=== PATIENT | female | born 1940 | race Caucasian/White ===

== ENCOUNTER 2017-09-24 17:54 | Inpatient (IN) ==
[2017-09-24] MEDS ORDERED: *HR* FentaNYL (PF) 100 MCG/2 ML VIAL IVP ONE ×2 (18:07→19:42)
--- NOTE | 2017-09-24 18:08 | Emergency Department Note ---
Disposition Clinical Impression: Hip fracture, Chronic kidney disease Disposition: Admitted As Inpatient Condition: Fair General Adult HPI - General Chief complaint: ED Fall Stated complaint: fall/left hip pain Time Seen by Provider: 09/24/17 17:56 Source: EMS Limitations: physical limitation - History of Present Illness Pain Scale: 10 - Related Data Home Medications Medication Instructions Recorded Confirmed PrednisoLONE Acetate 1% Opth 1 drop LEFT EYE QID 09/24/17 09/24/17 [PredFORTE 1%] Allergies Allergy/AdvReac Type Severity Reaction Status Date / Time sulfamethoxazole AdvReac Vomiting Verified 08/04/17 09:08 [From Bactrim] trimethoprim [From Bactrim] AdvReac Vomiting Verified 08/04/17 09:08 Past Medical History - Past Medical History Medical history: Reports: hyperlipidemia, other Psychiatric history: Reports: no psych history BEAD CUTTER history: Reports: no BEAD CUTTER history - Social History Smoking Status: Never smoker Smokeless Tobacco Status: No Alcohol use: Reports: none Drug use: Reports: none Physical Exam - General Limitations: physical limitation General appearance: alert, in no apparent distress Course Vital Signs Temperature 98.6 F 09/24/17 17:56 Pulse Rate 81 09/24/17 17:56 Respiratory Rate 16 09/24/17 17:56 Blood Pressure 138/80 09/24/17 17:56 O2 Sat by Pulse Oximetry 98 09/24/17 17:56 Temperature 98.3 F 09/25/17 06:25 Pulse Rate 83 09/25/17 06:25 Respiratory Rate 18 09/25/17 06:25 Blood Pressure 123/73 09/25/17 06:25 O2 Sat by Pulse Oximetry 99 09/25/17 06:25 Oxygen Delivery Oxygen Delivery Room Air Medical Decision Making - Lab Data Result diagrams: 09/25/17 00:49 09/25/17 00:49 Lab Results 09/24/17 09/24/17 09/24/17 Range/Units 18:13 18:13 18:13 WBC 2.8 L (4.3-11.1) K/mcL RBC 3.68 L (3.82-4.97) M/mcL Hgb 11.4 L (11.5-15.4) g/dL Hct 34.2 L (35.3-44.9) % MCV 92.9 (83.0-100.0) fL MCH 31.0 (28.0-33.3) pg MCHC 33.3 (31.6-35.5) g/dL RDW 13.7 (11.5-14.5) % Plt Count 154 (140-400) K/mcL MPV 10.6 (9.4-12.4) fL Immature Gran % 0.0 (0-4) % Seg Neutrophils % 45.0 % Lymphocytes % 46.0 % Monocytes % 5.4 % Eosinophils % 2.5 % Basophils % 1.1 % Neutrophils # 1.2 L (1.6-8.9) K/mcL Lymphocytes # 1.3 (0.6-4.6) K/mcL Monocytes # 0.2 (0.0-1.3) K/mcL Eosinophils # 0.1 (0.0-0.6) K/mcL Basophils # 0.0 (0.0-0.2) K/mcL PT (9.4-12.1) Seconds INR Sodium 140 (136-145) mEq/L Potassium 3.8 (3.5-5.1) mEq/L Chloride 107 (98-107) mEq/L Carbon Dioxide 26 (23-29) mEq/L BUN 27 H (8-23) mg/dL Creatinine 1.58 H (0.60-1.20) mg/dL Est GFR ( Amer) 38 L (> 60) Est GFR (Non-Af Amer) 32 L (> 60) BUN/Creatinine Ratio 17 (6-26) Glucose 111 H (70-105) mg/dL Calculated Osmolality 296 (280-300) Calcium 9.8 (8.6-10.3) mg/dL Blood Type A POSITIVE Antibody Screen NEGATIVE 09/24/17 Range/Units 18:13 WBC (4.3-11.1) K/mcL RBC (3.82-4.97) M/mcL Hgb (11.5-15.4) g/dL Hct (35.3-44.9) % MCV (83.0-100.0) fL MCH (28.0-33.3) pg MCHC (31.6-35.5) g/dL RDW (11.5-14.5) % Plt Count (140-400) K/mcL MPV (9.4-12.4) fL Immature Gran % (0-4) % Seg Neutrophils % % Lymphocytes % % Monocytes % % Eosinophils % % Basophils % % Neutrophils # (1.6-8.9) K/mcL Lymphocytes # (0.6-4.6) K/mcL Monocytes # (0.0-1.3) K/mcL Eosinophils # (0.0-0.6) K/mcL Basophils # (0.0-0.2) K/mcL PT 11.5 (9.4-12.1) Seconds INR 1.0 Sodium (136-145) mEq/L Potassium (3.5-5.1) mEq/L Chloride (98-107) mEq/L Carbon Dioxide (23-29) mEq/L BUN (8-23) mg/dL Creatinine (0.60-1.20) mg/dL Est GFR ( Amer) (> 60) Est GFR (Non-Af Amer) (> 60) BUN/Creatinine Ratio (6-26) Glucose (70-105) mg/dL Calculated Osmolality (280-300) Calcium (8.6-10.3) mg/dL Blood Type Antibody Screen Attestation Statement - Attestation Attestation: I examined this patient and my medical decision-making was reviewed with the DEALERSHIP GENERAL MANAGER/PA/Advanced Practice Nurse/Resident Physician. I agree with the documented findings, disposition and treatment plan as described except to the extent set forth below. Presents with right hip pain after tripping and falling on the sidewalk when she tripped over some weeds and this was 1 hour ago at 5 PM tonight and does have right-sided pain which is severe and worse with range of motion. She did not hit her head. She denies any pain in the head, neck, chest, abdomen or back. On exam does have pain with palpation of the right hip but no open fracture or evidence of abrasion or breaks in the skin. The right leg does have minimal shortening compared to the left at the dorsal pedal pulse is 2+, neurovascular intact. X-ray pending. 180
--- NOTE | 2017-09-24 18:15 | Emergency Department Note ---
Disposition Clinical Impression: Hip fracture Qualifiers: Encounter type: initial encounter Fracture type: closed Laterality: right Qualified Code(s): S72.001A - Fracture of unspecified part of neck of right femur, initial encounter for closed fracture Chronic kidney disease Qualifiers: Chronic kidney disease stage: unspecified stage Qualified Code(s): N18.9 - Chronic kidney disease, unspecified Disposition: Admitted As Inpatient Condition: Fair Referrals: Alicia Pereira CNP [Primary Care Provider] - Nick Cortes CNP [Family Provider] - Forms: ED Satisfaction Letter Time of Disposition: 19:00 Fall HPI - General Chief Complaint: ED Fall Stated Complaint: fall/left hip pain Time Seen by Provider: 09/24/17 17:56 Source: patient, EMS Mode of arrival: ambulatory Limitations: no limitations Nursing Notes Reviewed: Yes Vital Signs Reviewed: Yes - History of Present Illness HPI Narrative: 77-year-old female with a history of hypertension presents for evaluation after mechanical fall. Patient states she was walking on the sidewalk [place] hour prior to arrival. Patient states she fell landing on her right hip complaining of severe right hip pain. His pain is localized at the right hip. Denies any head neck or back pain. Denies any knee pain. Patient has not been ambulatory following that fall. EMS confirm the history. Patient denies any abdominal pain. No chest pain or short of breath. - Related Data Home Medications Medication Instructions Recorded Confirmed PrednisoLONE Acetate 1% Opth 1 drop LEFT EYE QID 09/24/17 09/24/17 [PredFORTE 1%] Allergies Allergy/AdvReac Type Severity Reaction Status Date / Time sulfamethoxazole AdvReac Vomiting Verified 08/04/17 09:08 [From Bactrim] trimethoprim [From Bactrim] AdvReac Vomiting Verified 08/04/17 09:08 All systems ED: reviewed and negative except as stated. Constitutional: Denies: fever Cardiovascular: Denies: chest pain Respiratory: Denies: cough, dyspnea Gastrointestinal: Denies: abdominal pain, nausea, vomiting Fall PMH - Past Medical History Medical history: Reports: hyperlipidemia, other Psychiatric history: Reports: no psych history PROFESSOR OF COMMUNICATION history: Reports: no PROFESSOR OF COMMUNICATION history - Social History Smoking Status: Never smoker Alcohol use: Reports: none Drug use: Reports: none Physical Exam - General Limitations: physical limitation General appearance: alert, in no apparent distress - Head Head exam: atraumatic, normocephalic, normal inspection - Eye Eye exam: Present: normal appearance, PERRL, EOMI - ENT ENT exam: normal exam, mucous membranes moist - Neck Neck exam: Present: normal inspection - Chest Chest inspection: Present: normal inspection, symmetric chest wall rise - Respiratory Respiratory exam: Present: normal lung sounds bilaterally. Absent: respiratory distress - Cardiovascular Cardiovascular exam: Present: regular rate, normal rhythm. Absent: systolic murmur - Abdominal Exam Abdominal exam: Present: soft, Non-Tender - Expanded Lower Extremity Exam Hip/Pelvis exam: Present: tenderness (Right hip), deformity, external rotation, shortening Upper leg exam: Present: normal inspection. Absent: swelling, abrasion Knee exam: Present: normal inspection. Absent: tenderness Lower leg exam: Present: normal inspection. Absent: tenderness Ankle exam: Present: normal inspection. Absent: tenderness Foot/toe exam: Present: normal inspection. Absent: tenderness Neurovascular/Tendon exam: Present: normal capillary refill. Absent: pulse deficit, motor deficit, sensory deficit - Back Exam Back exam: Present: normal inspection - Neurological Exam Neurological exam: Present: alert - Skin Skin exam: Present: warm, dry, intact, normal color Course Course Narrative: Patient's resting comfortably. Patient does have clinical symptoms of right hip fracture. Patient is neurovascularly intact. Patient will get imaging of the right hip with anticipated admission. - Reevaluation(s) Reevaluation #1: Patient is updated on plan of care. Patient is aware of her hip fracture. Patient will be admitted. Time: 18:59 - Consultations Consultation #1: Discussed the case with orthopeadics who is aware of the consult. Time: 18:59 Vital Signs Temperature 98.6 F 09/24/17 17:56 Pulse Rate 81 09/24/17 17:56 Respiratory Rate 16 09/24/17 17:56 Blood Pressure 138/80 09/24/17 17:56 O2 Sat by Pulse Oximetry 98 09/24/17 17:56 Temperature 98.6 F 09/24/17 17:56 Pulse Rate 68 09/24/17 18:41 Respiratory Rate 16 09/24/17 18:41 Blood Pressure 129/85 09/24/17 18:41 O2 Sat by Pulse Oximetry 97 09/24/17 18:41 Oxygen Delivery Oxygen Delivery Room Air Fall - [facility] Narrative Medical decision making narrative: Patient presents after mechanical fall. Patient history and physical exam is most consistent with mechanical and no syncope. Patient suffered a right hip fracture mildly displaced. Patient is neurovascularly intact. Patient case was discussed with orthopedics is aware the consult. Patient ultimately was medically the hospitalist. Patient declined the need for pain medication. Patient was offered appropriate pain medication. Patient also had preoperative labs. Patient was noted to be chronically anemic as well as chronic kidney disease. Patient had a preoperative EKG which showed no acute abnormalities. Patient's plan of care discussed at bedside. All questions are answered. Patient will be admitted in stable condition. Patient was noted to be leukopenic and has been leukopenic in the past. - Lab Data Lab results reviewed: Yes I reviewed the patient's lab results. Result diagrams: 09/24/17 18:13 09/24/17 18:13 Lab Results 09/24/17 09/24/17 09/24/17 Range/Units 18:13 18:13 18:13 WBC 2.8 L (4.3-11.1) K/mcL RBC 3.68 L (3.82-4.97) M/mcL Hgb 11.4 L (11.5-15.4) g/dL Hct 34.2 L (35.3-44.9) % MCV 92.9 (83.0-100.0) fL MCH 31.0 (28.0-33.3) pg MCHC 33.3 (31.6-35.5) g/dL RDW 13.7 (11.5-14.5) % Plt Count 154 (140-400) K/mcL MPV 10.6 (9.4-12.4) fL Immature Gran % 0.0 (0-4) % Seg Neutrophils % 45.0 % Lymphocytes % 46.0 % Monocytes % 5.4 % Eosinophils % 2.5 % Basophils % 1.1 % Neutrophils # 1.2 L (1.6-8.9) K/mcL Lymphocytes # 1.3 (0.6-4.6) K/mcL Monocytes # 0.2 (0.0-1.3) K/mcL Eosinophils # 0.1 (0.0-0.6) K/mcL Basophils # 0.0 (0.0-0.2) K/mcL Sodium 140 (136-145) mEq/L Potassium 3.8 (3.5-5.1) mEq/L Chloride 107 (98-107) mEq/L Carbon Dioxide 26 (23-29) mEq/L BUN 27 H (8-23) mg/dL Creatinine 1.58 H (0.60-1.20) mg/dL Est GFR ( Amer) 38 L (> 60) Est GFR (Non-Af Amer) 32 L (> 60) BUN/Creatinine Ratio 17 (6-26) Glucose 111 H (70-105) mg/dL Calculated Osmolality 296 (280-300) Calcium 9.8 (8.6-10.3) mg/dL Blood Type A POSITIVE Antibody Screen NEGATIVE - Radiology Data Radiology results reviewed: Yes I reviewed the patient's radiology results. Hip X-Ray 09/24/17 18:06 IMPRESSION: Right femoral neck fracture. D/ / Steve Del Angel MD / Steve Del Angel MD Interpreting Provider: Steve Del Angel MD - EKG Data EKG attestation: Yes I reviewed and interpreted this EKG. EKG shows normal: sinus rhythm Rate: normal Rhythm: NSR [place]/QRS: normal Interpretation: no acute changes, normal EKG S.B.AKinza - Ira Situation: Demographics Background: Presenting Complaint Assessment: Vital Signs, Patient/Family Expectation Recommendation: Barrier(s) to disposition, Recommendation based on pending studies, treatments, or consults S.B.AKinza Report Given to: Dr. Juaquin Roth Repor Time: 19:05
[2017-09-24 18:22] LABS: Basophils % 1.1 %; Eosinophils # 0.1 K/mcL (0.0-0.6); Eosinophils % 2.5 %; Hematocrit 34.2 % (35.3-44.9); Hemoglobin 11.4 g/dL (11.5-15.4); Lymphocytes # 1.3 K/mcL (0.6-4.6); Mean Corpuscular HGB Conc 33.3 g/dL (31.6-35.5); Mean Corpuscular Volume 92.9 fL (83.0-100.0); Mean Platelet Volume 10.6 fL (9.4-12.4); Monocytes # 0.2 K/mcL (0.0-1.3); Monocytes % 5.4 %; Neutrophils # 1.2 K/mcL (1.6-8.9); Platelet Count 154 K/mcL (140-400); Red Blood Count 3.68 M/mcL (3.82-4.97); Red Cell Distribution Width 13.7 % (11.5-14.5)
[2017-09-24 18:41] LABS: Calcium 9.8 mg/dL (8.6-10.3); Potassium 3.8 mEq/L (3.5-5.1)
[2017-09-24] MEDS ORDERED: Naloxone 0.4 MG/ML INJ IVP PRN (19:14)
[2017-09-24] MEDS ORDERED: *HR* HYDROcodone/Acet 5/325 mg TABLET PO PRN (19:14)
[2017-09-24] MEDS ORDERED: Acetaminophen 325 MG TABLET PO PRN (19:14)
--- NOTE | 2017-09-24 19:18 | Internal Med History&Physical ---
Date of Encounter: 09/24/17 Time of Encounter: 19:16 Internal Medicine - H&P: HPI Chief complaint: Fall Admitted From: Emergency Dept Plans for Post Hospital Care: Home History of present illness: Ms. Guzman is a 77 year old female with a history of chronic kidney disease , polycystic kidney disease, chronic leukopenia who presents after sustaining a mechanical fall and found to have a right femoral neck fracture. The patient denies any loss of consciousness. She states that she was at the [employer] and she stepped outside to the sidewalk and did not realize that it was uneven. She put her foot down on the uneven part and ended up falling on her right side and experienced significant pain. She was sent to the ED to get evaluated and found to have the above fracture. Denies any headache, blurry vision, nausea, vomiting, chest pain, shortness of breath, abdominal pain, diarrhea, constipation, urinary symptoms, or neurological symptoms. Orthopedics were consulted in the ED and will see the patient tomorrow for possible surgical intervention. Past Med Surg Social Fam HX - Past Medical History Medical history: hyperlipidemia, other Additional medical history: polycystic kidney disease Psychiatric history: no psych history - Past Surgical History Additional surgical history: breast biopsy - Social History Smoking Status: Never smoker Smokeless Tobacco Status: No Alcohol use: none Drug use: none Internal Medicine - H&P: Meds PrednisoLONE Acetate 1% Opth [PredFORTE 1%] 1 drop LEFT EYE QID 09/24/17 [ History] 3 Allergy/AdvReac Type Severity Reaction Status Date / Time sulfamethoxazole AdvReac Vomiting Verified 08/04/17 09:08 [From Bactrim] trimethoprim [From Bactrim] AdvReac Vomiting Verified 08/04/17 09:08 All Systems PM: A 10-system review of systems was performed and is negative for pertinent findings except as documented above in the HPI. Review of systems: All systems reviewed are negative except for as mentioned above - Constitutional Vitals: Temp Pulse Resp BP Pulse Ox 98.6 F 68 16 129/85 97 09/24/17 17:56 09/24/17 18:41 09/24/17 18:41 09/24/17 18:41 09/24/17 18:41 Exam: GEN: NAD HEENT: AT, NC, No cyanosis, oral mucosa is moist, No JVD Lymphatics: No lymphadenoapthy Eyes: Extrocular muscles intact, anicteric CVS:RRR. S1, S2, No m/r/g RESP: CTAB ABD: Soft, NT, ND, +BS EXT: No edema, No rashes, 2+ DP, right lower extremity externally rotated. NEURO: Nonfocal, CN II-XII intact, No focal motor or sensory deficits Psych: Cooperative, Not anxious or depressed Internal Med - H&P Results - Labs CBC & Chem 7: 09/24/17 18:13 09/24/17 18:13 Labs: Short CBC 09/24/17 Range/Units 18:13 WBC 2.8 L (4.3-11.1) K/mcL Hgb 11.4 L (11.5-15.4) g/dL Hct 34.2 L (35.3-44.9) % Plt Count 154 (140-400) K/mcL Neutrophils # 1.2 L (1.6-8.9) K/mcL BMP 09/24/17 18:13 Sodium 140 Potassium 3.8 Chloride 107 Carbon Dioxide 26 BUN 27 H Creatinine 1.58 H Glucose 111 H Calcium 9.8 - Impressions ITS Impressions Hip X-Ray 09/24/17 18:06 IMPRESSION: Right femoral neck fracture. D/ / Steve Del Angel MD / Steve Del Angel MD Interpreting Provider: Steve Del Angel MD - Assessment and plan (1) Femoral neck fracture Current Visit: Yes Status: Acute Assessment and plan: Admit to hospitalist. Pain control. Consult orthopedics. Nothing by mouth after midnight. EKG for preoperative purposes. We will add PT/INR to labs from the ED. Patient should be a moderate risk for intermediate risk procedure/ surgery with no need for further cardiac workup. Qualifiers: Encounter type: initial encounter Fracture type: closed Laterality: right Qualified Code(s): S72.001A - Fracture of unspecified part of neck of right femur, initial encounter for closed fracture (2) Chronic kidney disease Current Visit: Yes Status: Acute Assessment and plan: Stable around baseline. Qualifiers: Chronic kidney disease stage: stage 3 (moderate) Qualified Code(s): N18.3 - Chronic kidney disease, stage 3 (moderate) (3) Leukopenia Current Visit: No Status: Acute Assessment and plan: Seems to be chronic. Patient follows up with hematology and no specific etiology has been identified. We will refer to hematology in the outpatient setting Qualifiers: Leukopenia type: unspecified Qualified Code(s): D72.819 - Decreased white blood cell count, unspecified (4) DVT prophylaxis Current Visit: Yes Status: Acute Assessment and plan: Heparin subcutaneous - Time Spent With Patient Total time spent is greater than 50% in coordination of care (as documented) at patient's floor/unit and/or counseling patient:
[2017-09-24 19:29] LABS: Prothrombin Time 11.5 Seconds (9.4-12.1)
[2017-09-24] MEDS: *HR* Heparin 5,000 UNIT/ML VIAL SQ SCH (21:02)
[2017-09-24] MEDS ORDERED: *HR* OxyCODONE Immed Rel 5 MG TABLET PO PRN (23:30)
[2017-09-25 01:22] LABS: Basophils % 0.5 %; Eosinophils # 0.1 K/mcL (0.0-0.6); Eosinophils % 1.6 %; Hematocrit 32.4 % (35.3-44.9); Immature Granulocytes % 0.3 % (0-4); Lymphocytes # 1.3 K/mcL (0.6-4.6); Lymphocytes % 34.8 %; Mean Corpuscular Hemoglobin 31.3 pg (28.0-33.3); Mean Platelet Volume 11.7 fL (9.4-12.4); Monocytes # 0.3 K/mcL (0.0-1.3); Monocytes % 7.1 %; Neutrophils # 2.1 K/mcL (1.6-8.9); Platelet Count 129 K/mcL (140-400); Red Blood Count 3.52 M/mcL (3.82-4.97); Red Cell Distribution Width 13.6 % (11.5-14.5); Segmented Neutrophils % 55.7 %
[2017-09-25 01:38] LABS: Calcium 9.4 mg/dL (8.6-10.3); Potassium 3.5 mEq/L (3.5-5.1)
[2017-09-25] MEDS: *HR* Heparin 5,000 UNIT/ML VIAL SQ SCH ×3 (06:04→21:35)
--- NOTE | 2017-09-25 08:40 | Orthopedic Consult Note ---
Date of Encounter: 09/25/17 Time of Encounter: 08:39 Assessment and Plan (1) Hip fracture Current Visit: Yes Status: Aiyana Daigle has a displaced right femoral neck fracture. The recommendation is for surgical treatment to allow for early mobilization and pain control. After discussing the pros and cons of treatment options with the patient, she has elected to proceed with right hip hemiarthroplasty at this time. The risks and benefits of the procedure were fully explained in detail, including but not limited to the risk of infection, neurovascular injury, continued pain or stiffness, failure of surgery, reinjury, or need for additional surgery, DVT, PE , general risks of anesthesia and loss of limb or life. No guarantees were given or implied and all questions were answered. The patient understands all the risks and does wish to proceed with written consent. NPO for surgery. Qualifiers: Encounter type: initial encounter Fracture type: closed Laterality: right Qualified Code(s): S72.001A - Fracture of unspecified part of neck of right femur, initial encounter for closed fracture History of Present Illness HPI: Ms. Guzman is a 77 year old female with a history of chronic kidney disease , polycystic kidney disease, chronic leukopenia who presents after sustaining a mechanical fall on a sidewalk. She had immediate pain and deformity of the right hip following the fall. The patient denies any loss of consciousness, chest pain, SOB or blacking out prior to the fall. No other injuries or neuro complaints. Community ambulator without assistive devices. Past Med Surg Social Fam HX - Past Medical History Medical history: hyperlipidemia, other Additional medical history: polycystic kidney disease, cataracts, ckd, leukopenia Psychiatric history: no psych history - Past Surgical History Surgical History: hysterectomy Additional surgical history: breast biopsy, cataract sx with implants - Social History Smoking Status: Never smoker Smokeless Tobacco Status: No Alcohol use: none Drug use: none - Family History Father Name: gordy carlos Living Status: Hx Family Cancer: Yes Medications and Allergies PrednisoLONE Acetate 1% Opth [PredFORTE 1%] 1 drop LEFT EYE QID 09/24/17 [ History] 3 Allergy/AdvReac Type Severity Reaction Status Date / Time sulfamethoxazole AdvReac Vomiting Verified 08/04/17 09:08 [From Bactrim] trimethoprim [From Bactrim] AdvReac Vomiting Verified 08/04/17 09:08 All Systems Reviewed: The remainder of the systems were reviewed and are negative except as noted in HPI t Physical Exam - Constitutional Vitals: Temp Pulse Resp BP Pulse Ox 98.3 F 83 18 123/73 99 09/25/17 06:25 09/25/17 06:25 09/25/17 06:25 09/25/17 06:25 09/25/17 06:25 Exam: Constitutional -Vitals reviewed -The patient is well developed and well nourished. Psychiatric -The patient is alert and oriented x3. Respiratory: -Respiratory effort normal Abdomen: -Soft abdomen -Non tender -Non distended: Left upper extremity: -No deformities. The overlying skin is intact. No obvious signs of acute trauma. -No tenderness to palpation throughout. -No pain with passive motion of the shoulder, elbow, wrist, and fingers within the limits of the bed. -Motor and sensory exam intact over all nerve distributions -Radial pulse is present; Fingers have good capillary refill. Right upper extremity: -No deformities. The overlying skin is intact. No obvious signs of acute trauma. -No tenderness to palpation throughout. -No significant pain with passive motion of the shoulder, elbow, wrist, and fingers within the limits of the bed. -Motor and sensory exam intact over all nerve distributions -Radial pulse is present; Fingers have good capillary refill. Left lower extremity: -No deformities. The overlying skin is intact. No obvious signs of acute trauma. -No tenderness to palpation throughout. -No pain with passive motion of the hip, knee, ankle, and toes within the limits of the bed. -No pain with axial loading of the thigh. -Motor and sensory exam intact over all nerve distributions -Toes have good capillary refill. Right lower extremity: -Right hip short and ER. Passive motion of the hip deferred due to known fracture. -No pain with palpation of knee, tibia, ankle and foot. -Motor and sensory exam intact over all nerve distributions -Toes have good capillary refill. Results - Labs Result Diagrams: 09/25/17 00:49 09/25/17 00:49 Labs: Abnormal lab results WBC 3.7 K/mcL (4.3-11.1) L 09/25/17 00:49 RBC 3.52 M/mcL (3.82-4.97) L 09/25/17 00:49 Hgb 11.0 g/dL (11.5-15.4) L 09/25/17 00:49 Hct 32.4 % (35.3-44.9) L 09/25/17 00:49 Plt Count 129 K/mcL (140-400) L 09/25/17 00:49 Chloride 109 mEq/L (98-107) H 09/25/17 00:49 BUN 24 mg/dL (8-23) H 09/25/17 00:49 Creatinine 1.22 mg/dL (0.60-1.20) H 09/25/17 00:49 Est GFR ( Amer) 52 (> 60) L 09/25/17 00:49 Est GFR (Non-Af Amer) 43 (> 60) L 09/25/17 00:49 Glucose 118 mg/dL (70-105) H 18 00:49 H & H 09/25/17 Range/Units 00:49 Hgb 11.0 L (11.5-15.4) g/dL Hct 32.4 L (35.3-44.9) % All other labs normal. - Diagnostic results Hip x-ray: image reviewed Consult Discharge Plan - Plan Referrals: Alicia Pereira CNP [Primary Care Provider] - Nick Cortes CNP [Family Provider] -
[2017-09-25] MEDS ORDERED: 0.9 % Sodium Chloride 1,000 ML IVC SCH ×2 (09:15→13:29)
[2017-09-25] MEDS ORDERED: PrednisoLONE Acetate 1% Opth 5 ML BOTTLE LEFT EYE SCH (09:15)
--- NOTE | 2017-09-25 09:17 | Anesthesia Evaluation PreOp ---
Date of Encounter: 09/25/17 Time of Encounter: 09:15 - Past History Planned Operation: Right Hip Hemiarthroplasty Cardiac History: Hyperlipidemia Pulmonary History: Denies Any Significant HX COMPENSATION ANALYST History: Denies Any Significant HX Other Medical History: Renal (polycystic kidneys) Anesthesia History: No Prior Anesthetic Complications, Past Anesthesia Alcohol Use: none Drug use: none Medications and Allergies PrednisoLONE Acetate 1% Opth [PredFORTE 1%] 1 drop LEFT EYE QID 09/24/17 [ History] 3 Allergy/AdvReac Type Severity Reaction Status Date / Time sulfamethoxazole AdvReac Vomiting Verified 08/04/17 09:08 [From Bactrim] trimethoprim [From Bactrim] AdvReac Vomiting Verified 08/04/17 09:08 - Meds/Allergy Pre-op Review Medications Reviewed: Yes Allergies Reviewed: Yes Beta Blockers on Current Med List: No Anesthesia Results - Labs 09/25/17 00:49 09/25/17 00:49 Laboratory Tests 09/24/17 18:13 PT 11.5 INR 1.0 - Imaging EKG: report reviewed (09/24/2017 sinus rhythm) Anesthesia Exam Vital Signs/O2 Sat, Most Current Temp Pulse Resp BP Pulse Ox 98.3 F 83 18 123/73 99 09/25/17 06:25 09/25/17 06:25 09/25/17 06:25 09/25/17 06:25 09/25/17 06:25 Height: 5'3.5"/1.66m Weight: 122 lbs/55.7 kg NPO (# of Hours): 8 Pain Scale: 0 Pain Scale Used: Numeric (1 - 10) - HEENT Pupil (Motor): EOMI Mallampati: II Teeth: Normal, Missing Oral Opening: Greater than 3 - COMPENSATION ANALYST LOC: Oriented COMPENSATION ANALYST Motor: Normal RUE, Normal LUE, Normal RLE, Normal LLE, Normal Face COMPENSATION ANALYST Sensory: Normal: RUE, LUE, RLE, LLE, Face - Cardiac Rhythm: Regular Murmur: None - Pulmonary Breath Sounds: bilateral Clear Respiratory Effort: Symmetrical Anesthesia Assess/Plan ASA Score: 2 Modified [place] Scale for Level of Consciousness: Cooperative, oriented, and tranquil Anesthetic Plan: General Monitoring Plan: Standard Monitors Recovery Plan: PACU
[2017-09-25] MEDS ORDERED: Ethanol\\Acetic Acid\\Na Ace\\Ben 1,000 ML IRRIG.SOLN IR ONE (09:26)
[2017-09-25] MEDS ORDERED: Dexamethasone 4 MG/ML VIAL ONE ×2 (09:42→12:28)
[2017-09-25] MEDS ORDERED: Ondansetron 4 MG/2 ML VIAL ONE (09:42)
[2017-09-25] MEDS ORDERED: *HR* Propofol 200 MG/20 ML VIAL IVP ONE (09:42)
[2017-09-25] MEDS ORDERED: *HR* FentaNYL (PF) 100 MCG/2 ML VIAL ONE ×2 (09:42→10:09)
[2017-09-25] MEDS ORDERED: Lidocaine -MPF 2% 2 ML VIAL ONE ×2 (09:42→12:28)
[2017-09-25] MEDS ORDERED: Lidocaine -MPF 4% 5 ML AMPUL ONE (09:44)
[2017-09-25] MEDS ORDERED: EPHEDrine 50 MG/ML VIAL ONE (09:53)
[2017-09-25] MEDS ORDERED: Ondansetron 4 MG/2 ML VIAL IVP ONE (10:10)
[2017-09-25] MEDS ORDERED: Naloxone 0.4 MG/ML INJ IVP PRN ×3 (10:10→13:29)
[2017-09-25] MEDS ORDERED: Albuterol 2.5 MG/3 ML NEBULIZER IH ONE (10:10)
[2017-09-25] MEDS ORDERED: *HR* OxyCODONE Immed Rel 5 MG TABLET PO PRN (10:10)
[2017-09-25] MEDS ORDERED: *HR* Promethazine 25 MG/ML VIAL IVP PRN ×2 (10:10→13:29)
[2017-09-25] MEDS ORDERED: *HR* HYDROmorphone 2 MG TABLET PO PRN (10:10)
[2017-09-25] MEDS ORDERED: *HR* Meperidine 25 MG/ML SYRINGE IVP PRN (10:10)
[2017-09-25] MEDS ORDERED: CeFAZolin Syr 2,000MG/20 ML 2,000 MG/20 ML SYRINGE IVPB ONE (10:14)
[2017-09-25] MEDS ORDERED: 0.9 % Sodium Chloride 500 ML IVC SCH (10:15)
--- NOTE | 2017-09-25 11:44 | Physician Discharge Referral ---
- Diagnosis (1) Hip fracture Status: Acute - Transfer Medications Home Medications: PrednisoLONE Acetate 1% Opth [PredFORTE 1%] 1 drop LEFT EYE QID 09/24/17 [ History] Allergies/Adverse Reactions: 3 Allergy/AdvReac Type Severity Reaction Status Date / Time sulfamethoxazole AdvReac Vomiting Verified 08/04/17 09:08 [From Bactrim] trimethoprim [From Bactrim] AdvReac Vomiting Verified 08/04/17 09:08 - Respiratory Orders Smoking Cessation: Smoking cessation has been advised. For more information, call the [place] Tobacco Quit Line at 3-559-TLHO-NOW. - Rehabiliation Orders Rehab Potential: Fair Rehab Orders: ROM Exercises, Evaluation for Physical Therapy, Evaluation for Occupational Therapy Other: DISCHARGE INSTRUCTIONS Dr. Magdaleno Total Hip Replacement/Hip Hemiarthroplasty Wound Care -Keep wound / incision area clean and dry. -Keep dressing in place -No baths or swimming until otherwise instructed. -After 14 days, you may begin to shower only if no drainage is present. No submerging the wound under standing water until cleared by your physician (no baths, hot tubs, swimming pools, etc). Sponge baths are the best way to perform personal hygiene while at the same time protecting the wound from moisture. -No scrubbing the wound. You may "pad dry" the wound, but do not rub, as this may open up he wound and pre-dispose to wound infection. -Do not apply lotions or creams to incision site, unless instructed otherwise. -Observe for redness, swelling, or drainage. Please call the clinic immediately if you have fevers, chills with warmth/redness surrounding wound site or if you notice pus drainage from the wound site Activity -No heavy lifting objects greater than 10 pounds. -No driving while on narcotic pain medication. -You may be weight-bear as tolerated on both of your lower extremities. -Use crutches or a walker for ambulation. -Posterior hip precautions for 6 weeks: No bending the hip past 90 degrees. Do not allow the leg to cross the midline of your body (adduction). No twisting motions. Ask your physical therapist to review these precautions with you. Reducing the Risk of Blood Clots -You will need to complete a total 4 week course of enteric coated aspirin 325 mg twice daily. -Wear knee high compression hose 23 hours per day. Discharge Pain Medications -You will be given a prescription for pain medication. Wean off as tolerated. Do not wait to take the pain medication until the pain is severe, as it will be difficult to "catch up" once this occurs. The pain medication usually reaches its full effect ~1 hour after ingesting. -Your prescribed pain medication may contain Tylenol. You must be careful not to exceed 4,000 mg (4 g) of Tylenol (or generic equivalent), from all sources, within a single 24-hour period. -Some common side effects of the narcotic pain medications (Percocet, Oxycodone , Vicodin, etc) include nausea and itching. Benadryl is a great over the counter medication that helps calm your stomach, decreases your anxiety levels, and minimizes the itching. You can easily purchase this at your local pharmacy as an [id number] medication. Please abide by the instructions as printed on t-he bottle. If your nausea persists, make sure to take small amounts of crackers or other refrigerator cabinetmaker foods. [-Resume 50,000 units of vitamin D2 daily and 1200 mg of calcium supplementation per day - Diet Orders Regular CERTIFICATION: I certify that the transfer of the above named patient to an Extended Care Facility is necessary for the continuing treatment of the diagnosis listed. The above information is true and accurate reflection of patient's current condition. Confidential - Redisclosure prohibited without a patient's written consent.
[2017-09-25] MEDS ORDERED: *HR* HYDROmorphone (PF) 1 MG/ML SYRINGE ONE (12:04)
--- NOTE | 2017-09-25 12:07 | Orthopedic Operative Note ---
Date of procedure: 09/25/17 Implants: Procedure: Right hip hemiarthroplasty Preoperative Diagnosis: Right displaced femoral neck fracture Postoperative Diagnosis: Same Surgeon: Murphy Magdaleno MD Car Body Inspector: None Anesthesia: General EBL: 150 cc Complications: None Components used: Biomet Echo lateralized femoral stem, size 11, Endo II 49 mm head, +3 neck INDICATIONS: This is a 77 yo F who had a fall and sustained a right displaced femoral neck fracture. After discussing the procedure at length, and based on the patient's age and activity level, the patient elected for operative management with a right hip hemiarthroplasty. The risks and benefits of the procedure were fully explained. Those risks include but are not limited to, infection, neurovascular injury, continued pain, stiffness, further injury, need for further surgery, DVT, PE, loss of limb, and loss of life. The patient understood all of these risks and wished to proceed. Informed consent was obtained. No guarantees were stated or implied. OPERATIVE REPORT: The patient was identified in the holding area. The right lower extremity was marked, the patient was taken to the operating room and general anesthetic was administered on the hospital bed. The patients head, neck and airway were protected by anesthesia through the case. The patient was then transferred to the operating table and placed in the lateral position on a peg board. All bony prominences were well padded. The right lower extremity was then prepped and draped in the normal manner. Preoperative antibiotics were given prior to incision. A surgical time out protocol was then performed. A posterior approach was made. Incision was made just posterior to the greater trochanter. Sharp dissection was carried through subcutaneous tissue down to the fascia, coagulating any skin bleeders. Fascia nikhil and gluteus faizan fascia were then incised. Faizan fibers were digitally dissected and a Charnley retractor was placed. The hip was extended and internally rotated. A Cobra retractor was then placed over the ilium to retract the abductors anteriorly. Electrocautery was then used to release the piriformis and short external rotators and capsule from the posterior aspect of the hip joint and a full-thickness flap was created. This was tagged for later repair. The release was carried down distally to the level of the lesser trochanter. At this point the hip was dislocated and the femoral neck fracture was exposed. A saw was used to freshen up the femoral neck cut approximately 1 fingerbreadth above the lesser trochanter. The femoral head was removed with a corkscrew. The fractured neck fragments were removed with a ronguer. We then exposed the femur using a femoral elevator, and sequentially remained and broached the femur to appropriate size in accordance with the Biomet system. We seated a size 11 mm broach and did initial trial reductions with -3 neck. The extremity was short and so the hip was dislocated and the -3 neck was exchanged for a +3 neck and the hip was reduced. We had good soft tissue tensioning and stable range of motion, with good reproduction of leg lengths. The trials were removed and the femoral stem was press fit in place. Trial reductions were repeated with the +3 neck. Satisfied with the hip kinematics, we cleaned and dried the trunion and the final femoral head was impacted and the hip was reduced. We then did our final check of range of motion, stability and leg lengths. We then thoroughly irrigated the wound and closed the hip capsule with #1 ethibond. The piriformis tendon and external rotators were repaired through bone tunnels. Fascia nikhil was closed with #1 ethibond and subcutaneous tissues with 2-0 stratafix. Skin was closed with 3-0 stratafix. We then placed sterile dressings the patient was awoken by anesthesia and transferred to PACU in stable condition. Patient tolerated the procedure well. Postop plan: The patient will be transferred back to the floor and will be weight-bearing as tolerated postop. Was there an financial services assistant present: No Estimated blood loss (cc): 150
[2017-09-25] MEDS ORDERED: *HR* Metoprolol 5 MG/5 ML VIAL IVP ONE ×2 (12:51→12:59)
[2017-09-25] MEDS ORDERED: *HR* HYDROcodone/Acet 5/325 mg TABLET PO PRN (13:29)
[2017-09-25] MEDS: PrednisoLONE Acetate 1% Opth 5 ML BOTTLE LEFT EYE SCH ×2 (15:40→21:35)
--- NOTE | 2017-09-25 15:49 | Electrocardiograph Report ---
[address] [address] Test Date: 2017-09-24 Pat Name: Oxana Guzman Department: 104 Room: [facility] Gender: F Dcs Engineer: : [id number] Requested By: Woody Gonzalez Order Number: [id number] Reading MD: Fuad Dupree Measurements Intervals [place] Rate: 67 P: 53 [place]: 196 QRS: 50 QRSD: 86 T: 41 QT: 354 QTc: 369 Interpretive Statements SINUS RHYTHM Electronically Signed On 09-25-2017 15:47:16 EDT by Fuad Dupree
--- NOTE | 2017-09-25 17:07 | Internal Med Progress Note ---
Date of Encounter: 09/25/17 Time of Encounter: 17:06 - Assessment and plan (1) Femoral neck fracture Current Visit: Yes Status: Acute Assessment and plan: POD #0 s/p right hip hemiarthoplasty for right displaced femoral neck fracture. Pain control. Orthopedics consulted; appreciate input. Restarted SQ heparin for DVT prophylaxis. Qualifiers: Encounter type: initial encounter Fracture type: closed Laterality: right Qualified Code(s): S72.001A - Fracture of unspecified part of neck of right femur, initial encounter for closed fracture (2) Leukopenia Current Visit: Yes Status: Chronic Assessment and plan: Slightly improved. Seems to be chronic. Patient follows up with hematology and no specific etiology has been identified. We will refer to hematology in the outpatient setting. Recheck CBC in AM. Qualifiers: Leukopenia type: unspecified Qualified Code(s): D72.819 - Decreased white blood cell count, unspecified (3) Chronic kidney disease Current Visit: Yes Status: Chronic Assessment and plan: Stable around baseline. Recheck BMP in AM. Qualifiers: Chronic kidney disease stage: stage 3 (moderate) Qualified Code(s): N18.3 - Chronic kidney disease, stage 3 (moderate) (4) DVT prophylaxis Current Visit: Yes Status: Acute Assessment and plan: Continue SQ heparin. - Time Spent With Patient Total time spent is greater than 50% in coordination of care (as documented) at patient's floor/unit and/or counseling patient: less than 15 minutes - Subjective Interval history: Patient had no acute events overnight. She is POD #0 s/p right hip hemiarthoplasty for right displaced femoral neck fracture. She tolerated surgery well today. She is in no pain at this time. She denies fever, chills, chest pain, SOB, nausea, vomiting, and abdominal pain. She has no complaints at this time. - Constitutional Vitals: Temp Pulse Resp BP Pulse Ox 97.9 F 77 14 93/53 99 09/25/17 16:31 09/25/17 16:31 09/25/17 16:31 09/25/17 15:32 09/25/17 16:31 General appearance: Present: cooperative, A&O X 3, pleasant, no acute distress, answers questions appropriately - Respiratory Respiratory exam: Present: CTAB. Absent: accessory muscle use, rales, rhonchi, wheezes Additional comments: Normal WOB - Cardiovascular Cardiovascular exam: Present: RRR, +S1, +S2. Absent: diastolic murmur, gallop, rubs, systolic murmur Additional comments: No BLE edema - GI/Abdominal GI/Abdominal exam: Present: normal bowel sounds, soft. Absent: distended, hepatomegaly, mass, splenomegaly, tenderness - Psychiatric Psychiatric exam: Present: normal affect, normal mood. Absent: agitated, anxious, depressed - Skin Skin exam: Present: dry, warm. Absent: cyanosis, erythema, rash Internal Medicine: Result - Labs CBC & Chem 7: 09/25/17 00:49 09/25/17 00:49 Labs: Short CBC 09/25/17 Range/Units 00:49 WBC 3.7 L (4.3-11.1) K/mcL Hgb 11.0 L (11.5-15.4) g/dL Hct 32.4 L (35.3-44.9) % Plt Count 129 L (140-400) K/mcL Neutrophils # 2.1 (1.6-8.9) K/mcL BMP 09/25/17 00:49 Sodium 140 Potassium 3.5 Chloride 109 H Carbon Dioxide 23 BUN 24 H Creatinine 1.22 H Glucose 118 H Calcium 9.4 - ABG Interpretation ABG results: PT/INR, D-dimer PT 11.5 Seconds (9.4-12.1) 09/24/17 18:13 - Impressions Impressions Hip X-Ray 09/25/17 11:34 IMPRESSION: Expected postsurgical changes from right hip hemiarthroplasty. D/ / 09/25/2017 13:01:20 Sandy Stewart MD / Diann De Luna Interpreting Provider: Sandy Stewart MD - VTE Documentation of Mechanical Device: Intermittent pneumatic compression device Consult Discharge Plan - Plan Referrals: Alicia Pereira CNP [Primary Care Provider] - Nick Cortes CNP [Family Provider] -
[2017-09-26 01:49] LABS: Hematocrit 26.7 % (35.3-44.9); Lymphocytes # 0.7 K/mcL (0.6-4.6); Lymphocytes % 16.1 %; Mean Corpuscular HGB Conc 33.3 g/dL (31.6-35.5); Mean Corpuscular Hemoglobin 30.5 pg (28.0-33.3); Mean Corpuscular Volume 91.4 fL (83.0-100.0); Mean Platelet Volume 11.8 fL (9.4-12.4); Monocytes # 0.3 K/mcL (0.0-1.3); Monocytes % 6.9 %; Neutrophils # 3.3 K/mcL (1.6-8.9); Platelet Count 131 K/mcL (140-400); Red Blood Count 2.92 M/mcL (3.82-4.97); Red Cell Distribution Width 14.1 % (11.5-14.5)
[2017-09-26 01:50] LABS: Hemoglobin 8.9 g/dL (11.5-15.4)
[2017-09-26 02:34] LABS: BUN/Creatinine Ratio 19 (6-26); Blood Urea Nitrogen 19 mg/dL (8-23); Calcium 8.9 mg/dL (8.6-10.3); Carbon Dioxide 25 mEq/L (23-29); Chloride 107 mEq/L (98-107); Glucose 141 mg/dL (70-105); Osmolality,Calculated 291 (280-300); Potassium 4.4 mEq/L (3.5-5.1); Sodium 138 mEq/L (136-145); eGFR For African Americans > 60 (> 60); eGFR For Non-African Americans 54 (> 60)
[2017-09-26] MEDS: Acetaminophen 325 MG TABLET PO PRN ×2 (05:23→14:18)
[2017-09-26] MEDS: *HR* Heparin 5,000 UNIT/ML VIAL SQ SCH ×3 (05:23→20:22)
[2017-09-26] MEDS: Cholecalciferol (D-3) 1,000 UNIT TABLET PO SCH (08:17)
[2017-09-26] MEDS: PrednisoLONE Acetate 1% Opth 5 ML BOTTLE LEFT EYE SCH ×4 (08:17→20:21)
--- NOTE | 2017-09-26 08:52 | Orthopedics Progress Note ---
Date of Encounter: 09/26/17 Time of Encounter: 08:49 Subjective Interval history: S: The patient is sitting up on the edge of the bed working with therapy as a walk- in. Expected postoperative pain however significant improvement compared to her preoperative level. O: Afebrile on the vital signs are stable The right hip dressing is clean, dry, and intact. I can passively range the right hip with all and mild pain. She can dorsi flex and plantar flex ankle and toes and the foot is sensate and well-perfused Postoperative x-rays from yesterday showed good placement of her right hip hemiarthroplasty. A: Postoperative day 1 after right hip hemiarthroplasty P: Weight bearing as tolerated on the bilateral lower extremities. Posterior hip precautions. Schmitt out today. Currently on heparin for DVT prophylaxis. Social work and discharge planning. Objective Vital signs: Vital Signs Temp Pulse Resp BP Pulse Ox 09/26/17 08:00 96 09/26/17 06:58 99.3 F 65 16 105/64 96 09/26/17 02:50 98.6 F 83 16 100/56 98 09/25/17 23:20 98.8 F 83 16 90/46 98 09/25/17 20:45 96 09/25/17 18:52 98.1 F 90 16 96 09/25/17 16:31 97.9 F 77 14 99 09/25/17 15:32 98.1 F 81 14 93/53 98 09/25/17 14:46 97.7 F 76 14 103/64 97 09/25/17 13:53 98.1 F 85 14 104/63 97 09/25/17 13:21 98.2 F 91 18 120/68 99 09/25/17 13:00 84 12 113/77 98 09/25/17 12:50 98.3 F 94 14 124/76 99 09/25/17 12:40 91 12 122/71 95 09/25/17 12:30 93 10 119/74 99 09/25/17 12:20 93 18 122/71 99 09/25/17 12:10 99 10 123/75 99 09/25/17 12:00 112 14 107/76 93 09/25/17 11:49 101 16 111/72 99 09/25/17 11:39 99.2 F 99 16 124/80 99 Intake and Output 09/25/17 09/26/17 09/26/17 23:59 07:59 15:59 Intake Total 100 / 100 100 / 100 100 / 100 Output Total 300 / 300 Balance -200 / -200 100 / 100 100 / 100 Intake: IV Fluids 100 / 100 100 / 100 Ancef 2,000 MG In 0.9 % Sodium 100 / 100 100 / 100 Chloride 100 ML @ 200 mls/hr IVPB Q8HR KENZIE Rx#:[id number] Oral 100 / 100 Output: Urine 300 / 300 - Labs CBC & BMP: 09/26/17 00:50 09/26/17 00:50 Labs: Abnormal lab results WBC 4.2 K/mcL (4.3-11.1) L 09/26/17 00:50 RBC 2.92 M/mcL (3.82-4.97) L 09/26/17 00:50 Hgb 8.9 g/dL (11.5-15.4) L D 09/26/17 00:50 Hct 26.7 % (35.3-44.9) L 09/26/17 00:50 Plt Count 131 K/mcL (140-400) L 09/26/17 00:50 Est GFR (Non-Af Amer) 54 (> 60) L 09/26/17 00:50 Glucose 141 mg/dL (70-105) H 09/26/17 00:50 - VTE Documentation of Mechanical Device: Intermittent pneumatic compression device Consult Discharge Plan - Plan Referrals: Alicia Pereira CNP [Primary Care Provider] - Nick Cortes CNP [Family Provider] -
--- NOTE | 2017-09-26 09:19 | Internal Med Progress Note ---
Date of Encounter: 09/26/17 Time of Encounter: 09:17 - Assessment and plan (1) Femoral neck fracture Current Visit: Yes Status: Acute Qualifiers: Encounter type: initial encounter Fracture type: closed Laterality: right Qualified Code(s): S72.001A - Fracture of unspecified part of neck of right femur, initial encounter for closed fracture (2) Leukopenia Current Visit: Yes Status: Chronic Qualifiers: Leukopenia type: unspecified Qualified Code(s): D72.819 - Decreased white blood cell count, unspecified (3) Chronic kidney disease Current Visit: Yes Status: Chronic Qualifiers: Chronic kidney disease stage: stage 3 (moderate) Qualified Code(s): N18.3 - Chronic kidney disease, stage 3 (moderate) (4) DVT prophylaxis Current Visit: Yes Status: Acute - Time Spent With Patient Total time spent is greater than 50% in coordination of care (as documented) at patient's floor/unit and/or counseling patient: - Subjective Interval history: Patient had no acute events overnight. She is POD #1 s/p right hip hemiarthoplasty for right displaced femoral neck fracture. She is ambulating from chair to bed when I saw her. She is in no pain at this time. She denies fever, chills, chest pain, SOB, nausea, vomiting, and abdominal pain. She has no complaints at this time. - Constitutional Vitals: Temp Pulse Resp BP Pulse Ox 99.3 F 65 16 105/64 96 09/26/17 06:58 09/26/17 06:58 09/26/17 06:58 09/26/17 06:58 09/26/17 08:00 General appearance: Present: cooperative, A&O X 3, pleasant, no acute distress, answers questions appropriately - Respiratory Respiratory exam: Present: CTAB. Absent: accessory muscle use, rales, rhonchi, wheezes Additional comments: Normal WOB - Cardiovascular Cardiovascular exam: Present: RRR, +S1, +S2. Absent: diastolic murmur, gallop, rubs, systolic murmur Internal Medicine: Result - Labs CBC & Chem 7: 09/26/17 00:50 09/26/17 00:50 Labs: Short CBC 09/26/17 Range/Units 00:50 WBC 4.2 L (4.3-11.1) K/mcL Hgb 8.9 L D (11.5-15.4) g/dL Hct 26.7 L (35.3-44.9) % Plt Count 131 L (140-400) K/mcL Neutrophils # 3.3 (1.6-8.9) K/mcL BMP 09/26/17 00:50 Sodium 138 Potassium 4.4 Chloride 107 Carbon Dioxide 25 BUN 19 Creatinine 1.00 Glucose 141 H Calcium 8.9 - ABG Interpretation ABG results: PT/INR, D-dimer PT 11.5 Seconds (9.4-12.1) 09/24/17 18:13 - Impressions Impressions Hip X-Ray 09/25/17 11:34 IMPRESSION: Expected postsurgical changes from right hip hemiarthroplasty. D/ / 09/25/2017 13:01:20 Sandy Stewart MD / Diann De Luna Interpreting Provider: Sandy Stewart MD - VTE Documentation of Mechanical Device: Intermittent pneumatic compression device Consult Discharge Plan - Plan Referrals: Alicia Pereira CNP [Primary Care Provider] - Nick Cortes CNP [Family Provider] -
--- NOTE | 2017-09-26 09:22 | Discharge Summary ---
- NOTES TO OUTPATIENT PROVIDER Notes to Outpatient Provider: Follow up with inpatient rehab physician in 2-3 days after discharge. Recheck BMP and CBC at that time. Follow up with orthopedics as directed. Orders not resulted at time of discharge: Pending orders 09/25/17 11:04 Surgical Pathology [PTH] Routine 09/27/17 04:00 Basic Metabolic Panel AM 0400 CBC [Complete Blood Count] [HEME] AM 0400 Date of Encounter: 09/26/17 Time of Encounter: 09:20 - Discharge Diagnosis (1) Femoral neck fracture Priority: Primary Status: Acute Qualifiers: Encounter type: initial encounter Fracture type: closed Laterality: right Qualified Code(s): S72.001A - Fracture of unspecified part of neck of right femur, initial encounter for closed fracture (2) Leukopenia Priority: Secondary Status: Chronic Qualifiers: Leukopenia type: unspecified Qualified Code(s): D72.819 - Decreased white blood cell count, unspecified (3) Chronic kidney disease Priority: Secondary Status: Chronic Qualifiers: Chronic kidney disease stage: stage 3 (moderate) Qualified Code(s): N18.3 - Chronic kidney disease, stage 3 (moderate) (4) DVT prophylaxis Priority: Secondary Status: Acute Hospital course: Ms. Guzman is a 77 year old female admitted for right displaced femoral neck fracture. She was admitted to orthopedic floor with telemetry. Orthopedic surgery was consulted. She had right hip hemiarthroplasty. She tolerated surgery well. She is POD #1 today, and she is ambulating from chair to bed when I saw her. She has worked with PT/OT, who recommended acute inpatient rehab. Orthopedics agrees with plan. She is in no pain at this time. She denies fever, chills, chest pain, SOB, nausea, vomiting, and abdominal pain. She has no complaints at this time. Social work is working on rehab placement, although this may not happen over the weekend. She will be conditionally discharged today pending acute rehab placement. She will follow up with acute rehab physician in 2-3 days after discharge. BMP and CBC can be rechecked at that time. She will follow up with orthopedics as directed. Patient has met maximum benefit of this hospitalization and will be discharged to acute inpatient rehabilitation in stable condition. Discharge discussed with: patient, nurse - Time Spent with Patient Total time spent providing and/or coordinating discharge services: Greater than 30 minutes - Discharge Medications Prescriptions: HYDROcodone/Acet 5/325 mg [[place] 5-325 mg] 1 tab PO Q6HR PRN 3 Days #12 tablet PRN Reason: Severe Pain Home Medications: PrednisoLONE Acetate 1% Opth [PredFORTE 1%] 1 drop LEFT EYE QID 09/24/17 [ History] Acetaminophen [Tylenol] 650 mg PO Q6HR PRN tablet 09/26/17 [Rx] HYDROcodone/Acet 5/325 mg [[place] 5-325 mg] 1 tab PO Q6HR PRN 3 Days #12 tablet 09/26/17 [Rx] Allergies/Adverse Reactions: 3 Allergy/AdvReac Type Severity Reaction Status Date / Time sulfamethoxazole AdvReac Vomiting Verified 08/04/17 09:08 [From Bactrim] trimethoprim [From Bactrim] AdvReac Vomiting Verified 08/04/17 09:08 Date of admission: 09/24/17 19:20 Primary care physician: Alicia Pereira Consults: Orthopedic Surgery 09/24/17 21:04 Consult to Nutrition [CONS] Routine Comment: Consulting Provider: NUTRITION Reason for Dietary Consult: PO Supplementation Consult to Service Cashier [CONS] Routine Reason for SW Consult: PLACEMENT 09/25/17 13:29 Consult to Occupational Therapy [CONS] Routine Comment: Evaluate, develop and implement POC Reason for Consult: post hip surgery Does patient have active BEDREST order?: No Is patient medically & hemodynamically stable?: Yes Consult to Orthopedic Navigator [CONS] [CONS] Routine Consult to Physical Therapy [CONS] Routine Comment: Evaluate, develop and implement POC Reason for Consult: post hip surgery Does patient have active BEDREST order?: No Is patient medically & hemodynamically stable?: Yes Consult to Service Cashier [CONS] Routine Reason for SW Consult: post -op hip fracture RT Post Op Consult [CONS] Routine 09/26/17 09:15 Consult to Service Cashier [CONS] Routine Reason for SW Consult: Acute Rehab Placement Discharging clinician: Bentley Gibson Anticipated date of discharge: 09/26/17 - Constitutional Vitals: Temp Pulse Resp BP Pulse Ox 99.3 F 65 16 105/64 96 09/26/17 06:58 09/26/17 06:58 09/26/17 06:58 09/26/17 06:58 09/26/17 08:00 General appearance: Present: cooperative, A&O X 3, pleasant, no acute distress, answers questions appropriately - Respiratory Respiratory exam: Present: CTAB. Absent: accessory muscle use, rales, rhonchi, wheezes Additional comments: Normal WOB - Cardiovascular Cardiovascular exam: Present: RRR, +S1, +S2. Absent: diastolic murmur, gallop, rubs, systolic murmur Additional comments: No BLE edema - GI/Abdominal GI/Abdominal exam: Present: normal bowel sounds, soft. Absent: distended, hepatomegaly, mass, splenomegaly, tenderness - Psychiatric Psychiatric exam: Present: normal affect, normal mood. Absent: agitated, anxious, depressed - Skin Skin exam: Present: dry, warm. Absent: cyanosis, erythema, rash - Patient Status Disposition: Transfer Inpatient Rehab Fac Condition: Good Overall status at discharge: patient is progressing back to baseline - Discharge Instructions Follow Up With: Alicia Pereira CNP [Primary Care Provider] - Nick Cortes CNP [Family Provider] - Additional Instructions: Follow up with ECF physician in 2-3 days after discharge. Recheck BMP and CBC at that time. Follow up with orthopedics as directed. - Diet and Activity Activity: as per physical therapy Diet: other (Renal Diet)
--- NOTE | 2017-09-26 11:03 | Physician Discharge Referral ---
ExtendedCare Referral Info Transfer To: Inpatient Acute Rehabilitation Facility Provider in Charge after Transfer: Other (Inpatient Acute Rehabilitation Physician) Institutional Level of Care: Skilled - Diagnosis (1) Femoral neck fracture Priority: Primary Status: Acute (2) Leukopenia Priority: Secondary Status: Chronic (3) Chronic kidney disease Priority: Secondary Status: Chronic (4) DVT prophylaxis Priority: Secondary Status: Acute Prognosis: Good Aware of Diagnosis: Patient Aware of Prognosis: Patient - Transfer Medications Prescriptions: HYDROcodone/Acet 5/325 mg [[place] 5-325 mg] 1 tab PO Q6HR PRN 3 Days #12 tablet PRN Reason: Severe Pain Home Medications: PrednisoLONE Acetate 1% Opth [PredFORTE 1%] 1 drop LEFT EYE QID 09/24/17 [ History] Acetaminophen [Tylenol] 650 mg PO Q6HR PRN tablet 09/26/17 [Rx] HYDROcodone/Acet 5/325 mg [[place] 5-325 mg] 1 tab PO Q6HR PRN 3 Days #12 tablet 09/26/17 [Rx] Allergies/Adverse Reactions: 3 Allergy/AdvReac Type Severity Reaction Status Date / Time sulfamethoxazole AdvReac Vomiting Verified 08/04/17 09:08 [From Bactrim] trimethoprim [From Bactrim] AdvReac Vomiting Verified 08/04/17 09:08 - Respiratory Orders None Smoking Cessation: Smoking cessation has been advised. For more information, call the [place] Tobacco Quit Line at 6-735-MOYO-NOW. - Lab Orders Lab Orders: CBC (in 2-3 days), Other (include drug levels w/frequency) (BMP in 2 -3 days) - Advance Directives Code Status: Full Code - Mobility Orders Other (Per physical therapy) - Rehabiliation Orders Rehab Potential: Good Rehab Orders: Evaluation for Physical Therapy, Evaluation for Occupational Therapy - Diet Orders Regular (Ensure HP BID) House Supplement per Dietary: Ensure HP BID CERTIFICATION: I certify that the transfer of the above named patient to an Extended Care Facility is necessary for the continuing treatment of the diagnosis listed. The above information is true and accurate reflection of patient's current condition. Confidential - Redisclosure prohibited without a patient's written consent.
[2017-09-27 02:00] LABS: Eosinophils # 0.1 K/mcL (0.0-0.6); Eosinophils % 1.7 %; Hematocrit 26.7 % (35.3-44.9); Hemoglobin 8.9 g/dL (11.5-15.4); Immature Granulocytes % 0.3 % (0-4); Lymphocytes % 28.4 %; Mean Corpuscular HGB Conc 33.3 g/dL (31.6-35.5); Mean Corpuscular Hemoglobin 31.3 pg (28.0-33.3); Mean Platelet Volume 12.3 fL (9.4-12.4); Monocytes # 0.3 K/mcL (0.0-1.3); Monocytes % 7.4 %; Neutrophils # 2.2 K/mcL (1.6-8.9); Platelet Count 118 K/mcL (140-400); Red Blood Count 2.84 M/mcL (3.82-4.97); Red Cell Distribution Width 14.1 % (11.5-14.5); Segmented Neutrophils % 62.2 %
[2017-09-27 02:19] LABS: BUN/Creatinine Ratio 22 (6-26); Blood Urea Nitrogen 22 mg/dL (8-23); Calcium 8.9 mg/dL (8.6-10.3); Carbon Dioxide 27 mEq/L (23-29); Chloride 106 mEq/L (98-107); Glucose 153 mg/dL (70-105); Osmolality,Calculated 290 (280-300); Potassium 3.8 mEq/L (3.5-5.1); Sodium 137 mEq/L (136-145); eGFR For African Americans > 60 (> 60); eGFR For Non-African Americans 53 (> 60)
[2017-09-27] MEDS: Acetaminophen 325 MG TABLET PO PRN (05:09)
[2017-09-27] MEDS: *HR* Heparin 5,000 UNIT/ML VIAL SQ SCH ×2 (05:09→14:27)
[2017-09-27] MEDS: Cholecalciferol (D-3) 1,000 UNIT TABLET PO SCH (08:54)
[2017-09-27] MEDS: PrednisoLONE Acetate 1% Opth 5 ML BOTTLE LEFT EYE SCH ×2 (08:55→14:27)
--- NOTE | 2017-09-27 09:40 | Orthopedics Progress Note ---
Date of Encounter: 09/27/17 Time of Encounter: 09:38 Subjective Interval history: S: Doing well clinically with only mild pain to the right hip. O: Afebrile on the vital signs are stable The right hip dressing is clean, dry, and intact. I can passively range the right hip with all and mild pain. She can dorsi flex and plantar flex ankle and toes and the foot is sensate and well-perfused Postoperative x-rays from yesterday showed good placement of her right hip hemiarthroplasty. A: Postoperative day 2 after right hip hemiarthroplasty P: Orthopedic stable for discharge. Follow-up with Dr. Magdaleno in the office. Follow his postoperative protocol. Objective Vital signs: Vital Signs Temp Pulse Resp BP Pulse Ox 09/27/17 08:00 98 09/27/17 07:00 98.9 F 97 16 128/77 98 09/26/17 23:34 99.7 F H 94 14 126/70 96 09/26/17 20:22 99.3 F 94 16 113/67 96 09/26/17 15:50 98.6 F 80 18 117/66 98 09/26/17 10:37 97.9 F 90 18 108/62 96 Intake and Output 09/26/17 09/27/17 09/27/17 23:59 07:59 15:59 Intake Total 240 / 240 200 / 200 Output Total 400 / 400 Balance -160 / -160 200 / 200 Intake: Oral 240 / 240 200 / 200 Output: Urine 400 / 400 Other: Meal Dinner Breakfast Percent of Meal Consumed 25% 100% # Voids 1 1 - Labs CBC & BMP: 09/27/17 01:02 09/27/17 01:02 Labs: Abnormal lab results WBC 3.5 K/mcL (4.3-11.1) L 09/27/17 01:02 RBC 2.84 M/mcL (3.82-4.97) L 09/27/17 01:02 Hgb 8.9 g/dL (11.5-15.4) L 09/27/17 01:02 Hct 26.7 % (35.3-44.9) L 09/27/17 01:02 Plt Count 118 K/mcL (140-400) L 09/27/17 01:02 Est GFR (Non-Af Amer) 53 (> 60) L 09/27/17 01:02 Glucose 153 mg/dL (70-105) H 09/27/17 01:02 - VTE Documentation of Mechanical Device: Intermittent pneumatic compression device Consult Discharge Plan - Plan Additional Instructions: Follow up with ECF physician in 2-3 days after discharge. Recheck BMP and CBC at that time. Follow up with orthopedics as directed. Referrals: Alicia Pereira CNP [Primary Care Provider] - Nick Cortes CNP [Family Provider] - Prescriptions: HYDROcodone/Acet 5/325 mg [[place] 5-325 mg] 1 tab PO Q6HR PRN 3 Days #12 tablet PRN Reason: Severe Pain
[2017-09-27 11:08] VITALS: BP 119/83
--- NOTE | 2017-09-27 17:27 | Internal Med Progress Note ---
Date of Encounter: 09/27/17 Time of Encounter: 11:20 - Assessment and plan (1) Femoral neck fracture Status: Acute Assessment and plan: orthopedics consulted, underwent right hip hemiarthroplasty; recovering well; PT/OT evaluation recommends inpatient rehab, but patient declines, wishes to go home; also declines HHS; opts for outpatient therapy; to be set up by S/S; pain control with PRN Tylenol; declines narcotic pain meds; Qualifiers: Encounter type: initial encounter Fracture type: closed Laterality: right Qualified Code(s): S72.001A - Fracture of unspecified part of neck of right femur, initial encounter for closed fracture (2) Leukopenia Status: Chronic Assessment and plan: Slightly improved. Seems to be chronic. Patient follows up with hematology and no specific etiology has been identified. We will refer to hematology in the outpatient setting. Qualifiers: Leukopenia type: unspecified Qualified Code(s): D72.819 - Decreased white blood cell count, unspecified (3) Chronic kidney disease Status: Chronic Qualifiers: Chronic kidney disease stage: stage 3 (moderate) Qualified Code(s): N18.3 - Chronic kidney disease, stage 3 (moderate) (4) DVT prophylaxis Status: Acute - Time Spent With Patient Total time spent is greater than 50% in coordination of care (as documented) at patient's floor/unit and/or counseling patient: - Subjective Interval history: Reports improved right hip pain; no chest pain, dyspnea, nausea, vomiting; wants to be discharged home, declines ECF placement; - Constitutional Vitals: Temp Pulse Resp BP Pulse Ox 98.7 F 88 16 119/83 97 09/27/17 10:04 09/27/17 10:04 09/27/17 10:04 09/27/17 10:04 09/27/17 10:04 General appearance: Present: A&O X 3, no acute distress, answers questions appropriately - Cardiovascular Cardiovascular exam: Present: RRR, +S1, +S2. Absent: diastolic murmur, gallop, rubs, systolic murmur - Extremities Exam Extremities exam: Present: warm, radial pulses palpable and symmetrical. Absent : calf tenderness, cyanotic, pedal edema Additional comments: right hip lateral surgical dressing intact, no bleeding; Internal Medicine: Result - Labs CBC & Chem 7: 09/27/17 01:02 09/27/17 01:02 Labs: Short CBC 09/27/17 Range/Units 01:02 WBC 3.5 L (4.3-11.1) K/mcL Hgb 8.9 L (11.5-15.4) g/dL Hct 26.7 L (35.3-44.9) % Plt Count 118 L (140-400) K/mcL Neutrophils # 2.2 (1.6-8.9) K/mcL BMP 09/27/17 01:02 Sodium 137 Potassium 3.8 Chloride 106 Carbon Dioxide 27 BUN 22 Creatinine 1.02 Glucose 153 H Calcium 8.9 - ABG Interpretation ABG results: PT/INR, D-dimer PT 11.5 Seconds (9.4-12.1) 09/24/17 18:13 - VTE Documentation of Mechanical Device: Intermittent pneumatic compression device Consult Discharge Plan - Plan Instructions: Hydrocodone/Acetaminophen (By mouth), Total Hip Replacement (DC) Additional Instructions: Follow up with ECF physician in 2-3 days after discharge. Recheck BMP and CBC at that time. Follow up with orthopedics as directed. Discharge Instructions: Total Hip Replacement Please call [facility] ([phone]), your Primary Care Physician, or report to the Emergency Room if you have any of the following symptoms: Nausea, vomiting, fever greater that 101.5, swelling, chest pain, shortness of breath, increased pain/redness/drainage/odor for your incision site, numbness/ tingling, or any other concerning symptoms. ACTIVITY:Weight-bearing as tolerated for 8 weeks with hip dislocation precautions that physical therapy taught you. You may progress as tolerated under the guidance of your physical therapist. You do not need to sleep with a pillow between your legs. You can also seep on the operative side or on your stomach. MEDICATIONS: Upon discharge resume your home medications. Take all the medications as prescribed. Take a stool softener if taking narcotic pain medications. Stool softeners are only effective if you drink enough fluids. Drink 6-8 glass of water or fluids a day, unless this is not allowed for another health problem. Despite using stool softeners, if you haven't had a bowel movement in 3 days, please switch to a gentle laxative. Gentle laxatives are sold over the counter. You should have a bowel movement within 24 hours, if not call the office. You will be discharged from the hospital with a prescription for pain medication. You are encouraged to decrease the use of narcotic pain medication as tolerated. Should you require a refill, please call the office. [facility] prescribes narcotic pain medication for only 4-6 weeks after surgery. If you require pain medication beyond this time period, you may be referred to your Primary Care Physician or to the Pain Clinic for further evaluation. Plan ahead for refills on pain medication as many narcotics either need to be picked up at the office or mailed. It is best to call 48-72 hours in advance of needing a prescription refill so you don't run out of medication. To help control the post-operative pain, you may take NSAIDs (Aleve,Advil, Motrin, ibuprofen, naprosyn) or Tylenol as prescribed on the bottle in addition to the pain medication. ANTICOAGULATION (blood thinners): Continue your Aspirin, Lovenox or Coumadin as prescribed to help prevent a blood clot in the leg or in the lungs. As long as your incision remains dry and you tolerate the NSAIDs (Aleve, Advil, Motrin, Ibuprofen, Naprosyn), it is OK to use the NSAIDS while you are taking your anticoagulation medication. Should your incision start to drain, stop the NSAID and contact our office. Common symptoms of blood clot in the legs include: localized pain, swelling, calf tenderness, redness or discoloration of the skin. Blood clot in the lung symptoms include: shortness of breath, rapid pulse, sweating, and chest pain that worsens with deep breathing, coughing up blood, lightheadedness, feelings of anxiety. If you experience any of these symptoms notify your physician immediately, go to the emergency room, or if having trouble breathing, call 911. WOUND CARE: Leave the dressing on for 7 to 10days. You may change the dressing if it is saturated greater than 50%. Do not get the dressing wet at anytime. Wash your hands with antibacterial soap, rinse and dry prior to any wound care. If you have deborah the visiting nurse or rehab facility can remove the stapes 10-14 days after surgery and place steri-strips across the wound. Leave the steri-strips in place until they fall off on their own. You may let water from the shower run on top of the steri-strips. If you do not have a visiting nurse or rehab facility, you will need to return to the office at 10-14 days for the deborah to be removed. If you have itching or redness around the dressing call the office. FOLLOW-UP: Please follow up with your surgeon in the orthopedic clinic in 6 weeks from the day of surgery. If you have deborah that need to be removed, you will need to come back to the office in 10-14 days from the day of surgery. Referrals: Alicia Pereira CNP [Primary Care Provider] - Murphy Magdaleno MD [Non-Partnered Physician] - Nick Cortes CNP [Family Provider] - Prescriptions: HYDROcodone/Acet 5/325 mg [[place] 5-325 mg] 1 tab PO Q6HR PRN 3 Days #12 tablet PRN Reason: Severe Pain
== END 2017-09-27 16:58 | DRG 470 ==
LOC: EMEROO 17:54 → 3NENU 19:20
PROVIDERS: ADMIT Internal Medicine; ATTEND Internal Medicine

== ENCOUNTER 2019-11-14 12:28 | Inpatient (IN) ==
[2019-11-14] MEDS ORDERED: *HR* Propofol 200 MG/20 ML VIAL IVP ONE (13:21)
[2019-11-14] MEDS ORDERED: Lidocaine -MPF 2% 2 ML VIAL ONE (13:21)
[2019-11-14] MEDS ORDERED: 0.9 % Sodium Chloride 1,000 ML IVC SCH (14:15)
[2019-11-14] MEDS ORDERED: Acetaminophen 325 MG TABLET PO PRN (15:30)
[2019-11-15] MEDS: Pantoprazole 40 MG VIAL IVP SCH (09:30)
[2019-11-15] MEDS ORDERED: Lidocaine -MPF 2% 2 ML VIAL ONE (13:15)
[2019-11-15] MEDS ORDERED: *HR* PHENYLEPHRINE 1,000 MCG/10 ML SYRINGE IVP ONE (13:16)
[2019-11-15 16:26] LABS: Basophils % 0.7 %; Eosinophils # 0.2 K/mcL (0.0-0.6); Eosinophils % 5.5 %; Hematocrit 32.4 % (35.3-44.9); Hemoglobin 9.6 g/dL (11.5-15.4); Immature Granulocytes % 0.2 % (0-4); Lymphocytes # 0.8 K/mcL (0.6-4.6); Lymphocytes % 18.9 %; Mean Corpuscular HGB Conc 29.6 g/dL (31.6-35.5); Mean Corpuscular Hemoglobin 26.1 pg (28.0-33.3); Monocytes # 0.2 K/mcL (0.0-1.3); Monocytes % 4.2 %; Neutrophils # 2.8 K/mcL (1.6-8.9); Platelet Count 308 K/mcL (140-400); Red Blood Count 3.68 M/mcL (3.82-4.97); Red Cell Distribution Width 16.4 % (11.5-14.5); Segmented Neutrophils % 70.5 %
[2019-11-15 16:29] LABS: INR 1.1; Prothrombin Time 12.4 Seconds (9.4-12.1)
[2019-11-15 16:47] LABS: BUN/Creatinine Ratio 15 (6-26); Blood Urea Nitrogen 14 mg/dL (8-23); Calcium 9.4 mg/dL (8.6-10.3); Carbon Dioxide 23 mEq/L (23-29); Chloride 108 mEq/L (98-107); Glucose 92 mg/dL (70-105); Magnesium 2.1 mg/dL (1.6-2.6); Osmolality,Calculated 286 (280-300); Phosphorous 3.4 mg/dL (2.7-4.5); Potassium 3.6 mEq/L (3.5-5.1); Sodium 138 mEq/L (136-145); eGFR For African Americans > 60 (> 60); eGFR For Non-African Americans 57 (> 60)
[2019-11-15] MEDS: 0.9 % Sodium Chloride 1,000 ML IVC SCH (23:44)
[2019-11-16] MEDS: Pantoprazole 40 MG VIAL IVP SCH (08:19)
[2019-11-16] MEDS: 0.9 % Sodium Chloride 1,000 ML IVC SCH ×3 (11:13→18:55)
[2019-11-16] MEDS ORDERED: cefOXitin 2,000 MG in Water for inj. (sterile) 20 ML IVP ONE (13:27)
[2019-11-16] MEDS ORDERED: *HR* Propofol 200 MG/20 ML VIAL IVP ONE (14:17)
[2019-11-16] MEDS ORDERED: *HR* FentaNYL (PF) 100 MCG/2 ML VIAL ONE ×2 (14:17→15:11)
[2019-11-16] MEDS ORDERED: Lidocaine -MPF 2% 2 ML VIAL ONE (14:18)
[2019-11-16] MEDS ORDERED: *HR* Rocuronium Bromide 50 MG/5 ML VIAL ONE (14:18)
[2019-11-16] MEDS ORDERED: Lidocaine HCL 4 ML Topical Solution (Laryng-O-Jet Kit Sterile Pak) TP ONE (14:18)
[2019-11-16] MEDS ORDERED: CefOXitin 2,000 MG VIAL ONE (14:26)
[2019-11-16] MEDS ORDERED: *HR* HYDROMORPHONE 2 MG/ML VIAL ONE (15:54)
[2019-11-16] MEDS ORDERED: Acetaminophen 325 MG TABLET PO PRN (17:41)
[2019-11-16] MEDS: Ketorolac 15 MG/ML VIAL IVP SCH ×2 (18:17→23:54)
[2019-11-16] MEDS: *HR* Heparin 5,000 UNIT/ML VIAL SQ SCH (18:18)
[2019-11-17] MEDS: 0.9 % Sodium Chloride 1,000 ML IVC SCH (03:33)
[2019-11-17] MEDS: Ketorolac 15 MG/ML VIAL IVP SCH ×2 (05:56→12:00)
[2019-11-17] MEDS: *HR* Heparin 5,000 UNIT/ML VIAL SQ SCH ×2 (05:57→18:29)
[2019-11-17] MEDS: Pantoprazole 40 MG VIAL IVP SCH (08:42)
[2019-11-17 10:08] LABS: Basophils % 0.1 %; Eosinophils % 0.4 %; Hematocrit 27.6 % (35.3-44.9); Hemoglobin 8.2 g/dL (11.5-15.4); Immature Granulocytes % 0.4 % (0-4); Lymphocytes # 0.6 K/mcL (0.6-4.6); Lymphocytes % 8.7 %; Mean Corpuscular HGB Conc 29.7 g/dL (31.6-35.5); Mean Corpuscular Hemoglobin 26.8 pg (28.0-33.3); Mean Corpuscular Volume 90.2 fL (83.0-100.0); Mean Platelet Volume 10.5 fL (9.4-12.4); Monocytes # 0.2 K/mcL (0.0-1.3); Monocytes % 2.1 %; Neutrophils # 6.2 K/mcL (1.6-8.9); Platelet Count 260 K/mcL (140-400); Red Blood Count 3.06 M/mcL (3.82-4.97); Red Cell Distribution Width 16.7 % (11.5-14.5); Segmented Neutrophils % 88.3 %
[2019-11-17 10:17] LABS: BUN/Creatinine Ratio 14 (6-26); Blood Urea Nitrogen 15 mg/dL (8-23); Calcium 8.5 mg/dL (8.6-10.3); Carbon Dioxide 23 mEq/L (23-29); Chloride 109 mEq/L (98-107); Glucose 115 mg/dL (70-105); Magnesium 1.7 mg/dL (1.6-2.6); Osmolality,Calculated 290 (280-300); Phosphorous 3.3 mg/dL (2.7-4.5); Potassium 3.6 mEq/L (3.5-5.1); Sodium 139 mEq/L (136-145); eGFR For African Americans 60 (> 60); eGFR For Non-African Americans 49 (> 60)
[2019-11-17 10:44] LABS: Iron < 10 mcg/dL (50-170); Transferrin 213 mg/dL (203-362)
[2019-11-17] MEDS ORDERED: Iron Sucrose Complex 250 MG in 0.9 % Sodium Chloride 250 ML IVPB SCH (11:15)
[2019-11-17] MEDS ORDERED: *HR* OxyCODONE/APAP 5/325 TABLET PO PRN (15:49)
[2019-11-17] MEDS: Ibuprofen 800 MG TABLET PO SCH ×2 (16:53→23:26)
[2019-11-17] MEDS ORDERED: 0.9 % Sodium Chloride 2,000 ML IVC SCH (20:30)
[2019-11-18] MEDS: *HR* Heparin 5,000 UNIT/ML VIAL SQ SCH (03:56)
[2019-11-18 06:54] LABS: Basophils % 0.2 %; Hemoglobin 7.7 g/dL (11.5-15.4); Immature Granulocytes % 0.6 % (0-4)
[2019-11-18 06:55] LABS: Eosinophils # 0.3 K/mcL (0.0-0.6); Eosinophils % 5.2 %; Hematocrit 26.2 % (35.3-44.9); Lymphocytes # 0.5 K/mcL (0.6-4.6); Lymphocytes % 8.7 %; Mean Corpuscular HGB Conc 29.4 g/dL (31.6-35.5); Mean Corpuscular Hemoglobin 26.5 pg (28.0-33.3); Mean Platelet Volume 9.9 fL (9.4-12.4); Monocytes # 0.1 K/mcL (0.0-1.3); Monocytes % 2.1 %; Neutrophils # 4.3 K/mcL (1.6-8.9); Platelet Count 207 K/mcL (140-400); Red Blood Count 2.91 M/mcL (3.82-4.97); Red Cell Distribution Width 17.2 % (11.5-14.5); Segmented Neutrophils % 83.2 %; White Blood Count 5.2 K/mcL (4.3-11.1)
[2019-11-18 07:09] LABS: BUN/Creatinine Ratio 14 (6-26); Blood Urea Nitrogen 14 mg/dL (8-23); Calcium 8.4 mg/dL (8.6-10.3); Carbon Dioxide 22 mEq/L (23-29); Chloride 113 mEq/L (98-107); Glucose 107 mg/dL (70-105); Magnesium 1.7 mg/dL (1.6-2.6); Osmolality,Calculated 289 (280-300); Potassium 3.5 mEq/L (3.5-5.1); Sodium 139 mEq/L (136-145); eGFR For African Americans > 60 (> 60); eGFR For Non-African Americans 52 (> 60)
[2019-11-18] MEDS ORDERED: Iron Sucrose Complex 250 MG in 0.9 % Sodium Chloride 250 ML IVPB SCH (07:16)
[2019-11-18 08:18] VITALS: BP 109/54
[2019-11-18] MEDS: Ibuprofen 800 MG TABLET PO SCH (08:44)
[2019-11-18] MEDS: Pantoprazole 40 MG VIAL IVP SCH (08:45)
== END 2019-11-18 14:20 | disposition home or self-care (01) | DRG 330 ==
LOC: ENDPAV 12:28 → 3ANU 15:28
PROVIDERS: ADMIT Surgery; ATTEND Surgery
PROC: ENDOCBX (2019-11-15 13:30)